=== PATIENT | female | born 1955 | race Caucasian/White ===

== ENCOUNTER 2025-05-10 13:40 | Outpatient (CLI) | payer MEDICARE, OTHER ==
--- NOTE | 2025-05-10 15:55 | RADIOLOGY REPORT ---
PROCEDURE: MR MRI LUMBAR SPINE Indication: LOW BACK PAIN COMPARISON: None TECHNIQUE: Multiplanar multisequence images of the the lumbar spine are obtained. FINDINGS: For the purpose of this examination, there are 5 lumbar vertebral body types counting from the lumbosacral junction. There is lumbar dextrocurvature. Severe lumbar multilevel disc space narrowing. There is approximately 40% loss of the T12 vertebral body height with extensive marrow edema. There is especially pronounced edema at the T12 inferior endplate. Conus terminates at the level of the L1-2 disc space level. Degenerative edematous endplate changes at L2-3 lateralized towards the left. T12-L1: Small disc protrusion. No spinal canal stenosis. Moderate right and [id number] left neural foraminal stenosis. L1-2: 3 mm disc protrusion. [id number] facet and flavum hypertrophy. No spinal canal stenosis. Moderate bilateral neural foraminal stenosis. L2-3: 3 mm disc protrusion. Moderate facet and flavum hypertrophy. No spinal canal stenosis. Severe bilateral neural foraminal stenosis. L3-4: 3 mm disc protrusion. Moderate facet and flavum hypertrophy. No spinal canal stenosis. Severe bilateral neural foraminal stenosis. L4-5: 2 mm disc protrusion. Moderate facet and flavum hypertrophy. No spinal canal stenosis. Severe bilateral neural foraminal stenosis. L5-S1: 4 mm disc protrusion with a dominant right paracentral component. No spinal canal stenosis. Severe bilateral neural foraminal stenosis. Aneurysmal dilatation of the infrarenal abdominal aorta up to 3.3 cm. IMPRESSION: Approximately 40% loss of the T12 vertebral body height with extensive marrow edema and decreased T1 signal which can be secondary to acute / subacute compression fracture. Correlate clinically to exclude any type of underlying pathological process/ metastatic disease. No significant retropulsion of the T12 vertebral body. Prominent edema signal at the T12 inferior endplate which could also represent concomitant osteonecrosis. Lumbar severe degenerative disc disease.m Multilevel moderate to severe neural foraminal stenosis as described above. Aneurysmal dilatation of the infrarenal abdominal aorta up to 3.3 cm
== END 2025-05-10 23:59 | disposition home or self-care (01) ==
LOC: MRI 13:40
PROVIDERS: ATTEND Registered Nurse
DX: S39.012A Strain of muscle, fascia and tendon of lower back, initial encounter (principal); I71.43 Infrarenal abdominal aortic aneurysm, without rupture; X58.XXXA Exposure to other specified factors, initial encounter; Y93.89 Activity, other specified; Y92.89 Other specified places as the place of occurrence of the external cause; Y99.8 Other external cause status
CPT/HCPCS: 72148